=== PATIENT | male | born 1970 ===

== ENCOUNTER 2017-05-22 12:08 | Inpatient (IN) ==
[2017-05-22] MEDS ORDERED: POLYVINYL ALCOHOL 1.4% OPH SOLN 15 ML BOTTLE BOTH EYES PRN (13:59)
[2017-05-22] MEDS ORDERED: ALBUTEROL/IPRATROPIUM 3 ML NEB RESP TX PRN (14:09)
[2017-05-22 15:43] LABS: Basophils % 0.5 % (0.0-0.8); Hematocrit 32.8 VOL% (42.0-52.0); Hemoglobin 11.2 GM/DL (14.0-18.0); Immature Granulocytes % 0.3 %; Immature Granulocytes Absolute 0.01 #; Lymphocytes # 0.7 10*3/uL (1.4-4.0); Mean Corpuscular HGB Conc 34.1 GM/DL (32-36); Mean Corpuscular Hemoglobin 32 PG (27-34); Mean Corpuscular Volume 93.4 FL (87-102); Mean Platelet Volume 9.9 FL (9.6-12.0); Monocytes # 0.6 10*3/uL (0.11-0.8); Monocytes % 14.9 % (1.7-12.7); Neutrophils # 2.4 10*3/uL (1.4-7.4); Neutrophils % 64.3 % (38.7-73.9); Platelet Count 124 T/CUMM (130-400); Red Blood Count 3.51 MC/CUMM (3.8-5.5); Red Cell Distribution Width 13.4 % (9.3-17.3); White Blood Count 3.7 T/CUMM (4-12)
[2017-05-22 16:14] LABS: Albumin 2.9 G/DL (3.4-5.0); Bilirubin,Total 0.5 MG/DL (0.2-1.0); Calcium 8.5 MG/DL (8.5-10.1); Potassium 3.8 MMOL/L (3.5-5.1)
[2017-05-22] MEDS ORDERED: LEVOFLOXACIN INJ 250 MG in PREMIX 1 EACH IV SCH (16:30)
[2017-05-22] MEDS ORDERED: LEVOFLOXACIN INJ 500 MG in PREMIX 1 EACH IV ONE (16:30)
[2017-05-22] MEDS ORDERED: DEXTROSE 50% 25 GM/50 ML VIAL IV PRN (16:49)
[2017-05-22] MEDS ORDERED: GLUCAGON 1 MG VIAL IM PRN (16:49)
[2017-05-22] MEDS ORDERED: diphenhydrAMINE CAP 25 MG CAPSULE PO PRN (16:51)
[2017-05-22] MEDS ORDERED: hydrALAZINE 20 MG/1 ML VIAL IV PRN (16:52)
[2017-05-22] MEDS: OSELTAMIVIR 30 MG CAPSULE PO SCH (18:15)
[2017-05-22] MEDS: ACETAMINOPHEN 325 MG TABLET PO PRN (18:15)
[2017-05-22] MEDS: cloNIDine 0.1 MG TABLET PO SCH (21:27)
[2017-05-22] MEDS: METOPROLOL TARTRATE 25 MG TABLET PO SCH (21:27)
[2017-05-22] MEDS: LATANOPROST 0.005% OPH SOLN 2.5 ML BOTTLE BOTH EYES SCH (21:30)
[2017-05-23] MEDS: ACETAMINOPHEN 325 MG TABLET PO PRN ×2 (04:35→21:16)
[2017-05-23 06:36] LABS: Basophils % 0.3 % (0.0-0.8); Hematocrit 33.5 VOL% (42.0-52.0); Hemoglobin 11.7 GM/DL (14.0-18.0); Immature Granulocytes % 0.6 %; Immature Granulocytes Absolute 0.02 #; Lymphocytes # 0.7 10*3/uL (1.4-4.0); Lymphocytes % 18.9 % (21.2-54.2); Mean Corpuscular HGB Conc 34.9 GM/DL (32-36); Mean Corpuscular Hemoglobin 32 PG (27-34); Mean Platelet Volume 10.9 FL (9.6-12.0); Monocytes # 0.3 10*3/uL (0.11-0.8); Monocytes % 8.9 % (1.7-12.7); Neutrophils # 2.6 10*3/uL (1.4-7.4); Neutrophils % 71.3 % (38.7-73.9); Platelet Count 123 T/CUMM (130-400); Red Blood Count 3.64 MC/CUMM (3.8-5.5); Red Cell Distribution Width 13.3 % (9.3-17.3); White Blood Count 3.6 T/CUMM (4-12)
[2017-05-23 07:04] LABS: Calcium 8.3 MG/DL (8.5-10.1); Osmolality,Calculated 280.4 MOS/KG (273-304); Potassium 4.3 MMOL/L (3.5-5.1)
[2017-05-23] MEDS: glipiZIDE 5 MG TABLET PO SCH ×2 (07:55→08:54)
[2017-05-23] MEDS: amLODIPine 10 MG TABLET PO SCH ×2 (07:55→08:02)
[2017-05-23] MEDS: cloNIDine 0.1 MG TABLET PO SCH ×3 (07:55→21:17)
[2017-05-23] MEDS: PANTOPRAZOLE 40 MG TABLET PO SCH ×2 (07:55→08:03)
[2017-05-23] MEDS: ATORVASTATIN 20 MG TABLET PO SCH ×2 (07:55→08:02)
[2017-05-23] MEDS: CETIRIZINE 10 MG TABLET PO SCH ×2 (07:55→08:03)
[2017-05-23] MEDS: ASPIRIN EC 81 MG TABLET PO SCH ×2 (07:55→08:01)
[2017-05-23] MEDS: METOPROLOL TARTRATE 25 MG TABLET PO SCH ×3 (07:56→21:17)
[2017-05-23] MEDS: LOSARTAN 25 MG TABLET PO SCH ×2 (07:56→08:02)
[2017-05-23] MEDS: OSELTAMIVIR 30 MG CAPSULE PO SCH ×2 (07:58→08:03)
[2017-05-23] MEDS: SEVELAMER CARBONATE 800 MG TABLET PO SCH ×3 (08:54→18:00)
[2017-05-23] MEDS ORDERED: LOPERAMIDE 2 MG CAPSULE PO PRN (18:21)
[2017-05-23] MEDS: LATANOPROST 0.005% OPH SOLN 2.5 ML BOTTLE BOTH EYES SCH (21:20)
[2017-05-24 06:34] LABS: Basophils % 0.3 % (0.0-0.8); Hematocrit 33.6 VOL% (42.0-52.0); Hemoglobin 11.6 GM/DL (14.0-18.0); Immature Granulocytes % 0.3 %; Immature Granulocytes Absolute 0.01 #; Lymphocytes # 0.9 10*3/uL (1.4-4.0); Lymphocytes % 29.3 % (21.2-54.2); Mean Corpuscular HGB Conc 34.5 GM/DL (32-36); Mean Corpuscular Hemoglobin 32 PG (27-34); Mean Corpuscular Volume 93.6 FL (87-102); Mean Platelet Volume 10.5 FL (9.6-12.0); Monocytes # 0.3 10*3/uL (0.11-0.8); Monocytes % 9.3 % (1.7-12.7); Neutrophils % 60.8 % (38.7-73.9); Platelet Count 103 T/CUMM (130-400); Red Blood Count 3.59 MC/CUMM (3.8-5.5); Red Cell Distribution Width 13.4 % (9.3-17.3); White Blood Count 3.2 T/CUMM (4-12)
[2017-05-24 07:08] LABS: Calcium 8.5 MG/DL (8.5-10.1); Potassium 3.9 MMOL/L (3.5-5.1)
[2017-05-24] MEDS: SEVELAMER CARBONATE 800 MG TABLET PO SCH ×2 (09:16→13:12)
[2017-05-24] MEDS: glipiZIDE 5 MG TABLET PO SCH (09:16)
[2017-05-24] MEDS: PANTOPRAZOLE 40 MG TABLET PO SCH (09:16)
[2017-05-24] MEDS: OSELTAMIVIR 30 MG CAPSULE PO SCH (09:16)
[2017-05-24] MEDS: ATORVASTATIN 20 MG TABLET PO SCH (09:17)
[2017-05-24] MEDS: cloNIDine 0.1 MG TABLET PO SCH (09:17)
[2017-05-24] MEDS: amLODIPine 10 MG TABLET PO SCH (09:17)
[2017-05-24] MEDS: CETIRIZINE 10 MG TABLET PO SCH (09:17)
[2017-05-24] MEDS: METOPROLOL TARTRATE 25 MG TABLET PO SCH (09:17)
[2017-05-24] MEDS: ASPIRIN EC 81 MG TABLET PO SCH (09:17)
[2017-05-24] MEDS: LOSARTAN 25 MG TABLET PO SCH (09:17)
[2017-05-24] MEDS ORDERED: LEVOFLOXACIN INJ 250 MG in PREMIX 1 EACH IV SCH (10:00)
[2017-05-24 14:45] VITALS: BP 123/69
== END 2017-05-24 15:12 | disposition home or self-care (01) | DRG 871 ==
LOC: EDUNIT# → EDBD → N.ED 12:08 → SUATTDRO 13:29 → N.EDINP 13:29 → N.5E 15:12
PROVIDERS: ATTEND Internal Medicine Nephrology